=== PATIENT | male | born 1955 | race Caucasian/White ===

== ENCOUNTER 2024-02-04 11:17 | Observation (INO) | payer MEDICARE, SELFPAY ==
[2024-02-04 11:18] VITALS: BP 137/83; PULSE 78; RESP 18; TEMP 36.2; O2SAT 97
--- NOTE | 2024-02-04 11:27 | EKG12_ITS ---
Test Reason : N/V Blood Pressure : */* mmHG Vent. Rate : 73 BPM Atrial Rate : 73 BPM P-R Int : 140 ms QRS Dur : 74 ms QT Int : 390 ms P-R-T Axes : 17 -16 30 degrees QTcB Int : 429 ms Normal sinus rhythm Normal ECG Confirmed by Gio Weber ([id number]), metropolitan editor ROBINA COCHRAN ([id number]) on 02/07/2024 10:44:08 AM Referred By: Confirmed By: Gio Weber
--- NOTE | 2024-02-04 11:28 | EX.ED.DYSGE1 ---
HPI History of Present Illness Chief Complaint: Nausea/Vomiting/Diarrhea Narrative Narrative: 68-year-old male who denies significant past medical history presents via EMS status post syncopal episode. He relates history that he had a vasovagal episode in the early , over 20 years ago. Today, he had a syncopal episode for a few minutes according to his . He relates history that he has not been feeling well over the last few days to weeks with upper respiratory infection type symptoms. He has been making homemade cough syrup with honey and onion, and taking Zicam. He and his are driving to [place] today, and he did not feel well so he pulled over and his started driving. Shortly thereafter, he felt dizzy and lightheaded. His reports that he had a syncopal episode for a few moments. When he awoke, he had a large bowel movement/diarrhea. As she had pulled over, someone had called EMS because of a syncopal episode. He denies any prodromal symptoms such as chest pain or shortness of breath. He was given Zofran in the squad. He currently denies any abdominal pain or other symptoms. [facility] Medical History Vaso vagal episode Home Medications ?Medication ?Instructions ?Recorded ?Last Taken ?Type NK 02/04/24 Unknown History Allergy/AdvReac Type Severity Reaction Status Date / Time No Known Allergies Allergy Verified 02/04/24 11:25 Surgical History no surgical history Social History Smoking Status: Never smoker ROS ROS ED ROS Narrative Constitutional: No fever, no chills. HEENT: No sore throat. No neck pain. No loss of vision. No rhinorrhea. Cardiovascular: No chest pain. No palpitations. No pedal edema. Respiratory: Occasional cough and upper respiratory infection type symptoms times days to weeks. No shortness of breath. Abdominal: No abdominal pain. No nausea. No vomiting. Positive diarrhea. Genitourinary: No dysuria. No hematuria. Musculoskeletal: No myalgias. No arthralgias. Neurologic: No headaches. Positive dizziness and lightheadedness with syncopal episode for few minutes. Skin: No rash. No change in color. Psychiatric: No depression. No anxiety. EXAM Physical Exam Narrative Exam Narrative: Afebrile. Vital signs noted. HEENT examination grossly unremarkable, PERRL, EOMI. Neck soft and supple without meningismus. Cardiovascular examination reveals a regular rate and rhythm. Lungs are clear to auscultation bilaterally. Abdomen is soft, nontender, with positive bowel sounds. No guarding or rebound. Neurological examination shows him to be awake, alert, oriented x 3. At baseline. Const Vital Signs: 02/04/24 11:18 Temperature 97.1 F L Temperature Source Oral Pulse Rate 78 Respiratory Rate 18 Blood Pressure 137/83 H Blood Pressure Mean 101 Pulse Ox 97 Oxygen Delivery Method Room Air MDM MDM MDM Narrative Medical decision making narrative: Differential diagnosis includes but not limited to vasovagal syncope versus cardiac syncope versus seizure. Patient awoke, and had a large bowel movement/diarrhea. I do not think that this was secondary to seizure activity. There was no seizure-like activity reported by his . I do not feel he needs CT imaging of the brain. However, comprehensive workup was pursued. EKG was obtained and interpreted by myself independently as normal sinus rhythm at 73 bpm without ectopy or acute ST changes. No STEMI. QTc is normal at 449 ms. I reviewed his laboratory work and he has slight elevation of his WBC count at 13.1 which I think is nonspecific, hemoglobin 14.1 with hematocrit 40.9. Platelet count normal at 201. Chloride is slightly elevated at 108, normal sodium of 140 with potassium 3.8. BUN slightly elevated at 19 with a normal creatinine of 1.28. Glucose appropriately elevated at 140 with anion gap 9. I doubt hypoglycemia. LFTs are grossly unremarkable. Lipase normal at 29 so I doubt pancreatitis. Single high-sensitivity troponin is 3. Chest x-ray 1 view interpreted by myself independently as the patient has been coughing, shows no evidence of pneumonia or pneumothorax. I reviewed the radiology report which confirms my independent interpretation. Upon repeat examination, patient states he feels the same, but feels he is able to take in p.o. fluids. In retaking the history, he did state that he was having nausea and vomiting after his syncopal episode, and he felt the need to have a bowel movement. He states he attempted to exit the vehicle, and take off his pants, but was unable to do so. Hence, I doubt that he had a seizure with loss of bowel or bladder. Although he had a prior vasovagal episode, this was 20 years ago. Given the patient's age and an unknown reason for syncope that was witnessed by his , I discussed patient with the hospitalist for observation. Patient is in stable condition. History & Record Review Discussion w/independent historian: Patient and Family Lab Data Attestation: I reviewed the patient's lab results. Labs: Laboratory Results - last 24 hr 02/04/24 11:30 WBC 13.1 H RBC 4.62 Hgb 14.1 Hct 40.9 MCV 88.5 MCH 30.5 MCHC 34.5 RDW Std Deviation 43.7 RDW Coeff of Lorelei 13.4 Plt Count 201 MPV 9.4 Immature Gran % (Auto) 0.600 Neut % (Auto) 81.7 H Lymph % (Auto) 9.4 L [place]berg % (Auto) 7.3 Eos % (Auto) 0.8 Baso % (Auto) 0.2 Absolute Neuts (auto) 10.7 H Absolute Lymphs (auto) 1.23 Nucleated RBC % 0 Sodium 140 Potassium 3.8 Chloride 108 H Carbon Dioxide 23.0 Anion Gap 9 BUN 19 H Creatinine 1.28 Estim Creat Clear Calc 56.66 Est GFR (MDRD) Af Amer 71 Est GFR (MDRD) Non-Af 59 L BUN/Creatinine Ratio 14.8 Glucose 140 H Calcium 8.8 Total Bilirubin 0.70 AST 17 ALT 28 Alkaline Phosphatase 91 Troponin I High Sens 3 Total Protein 7.9 Albumin 4.3 Globulin 3.6 Albumin/Globulin Ratio 1.2 Lipase 29 Radiography Diagnostic Testing: Clinical Impression(s) from Imaging Studies Chest X-Ray 02/04/24 11:40 IMPRESSION: No focal infiltrate or edema. Electronically Signed: David Lao MD at 12:30 EST , Management Discussion w/another healthcare provider: Hospitalist (Dr. Segundo) Discharge Plan Dx/Rx/DC Orders Clinical Impression: Syncope, Nausea, vomiting and diarrhea, URI (upper respiratory infection) Disposition Disposition: [facility]
[2024-02-04 11:36] LABS: Absolute Lymphocyte Count 1.23 X10^3/uL (0.83-4.51); Absolute Neutrophil Count 10.7 X10^3/uL (2.0-7.7); Basophil# 0.03 X10^3/uL; Basophil% 0.2 % (0-1); Eosinophil# 0.11 X10^3/uL; Eosinophils% 0.8 % (0-5); Hematocrit 40.9 % (40-54); Hemoglobin 14.1 g/dL (13.0-16.5); Lymphocyte # 1.23 X10^3/ul (0.83-4.51); Lymphocyte % 9.4 % (19-41); Mean Corp Hgb Conc 34.5 g/dL (32-36); Mean Corpuscular Hgb 30.5 pg (27.0-32.0); Mean Corpuscular Volume 88.5 fL (80-94); Mean Platelet Vol. 9.4 fl (6.2-12.0); Monocyte# 0.96 X10^3/uL; Monocyte% 7.3 % (0-10); NRBC Flagged by Analyzer 0 % (0-5); Neutrophil # 10.68 X10^3/uL (2.7-7.7); Neutrophil % 81.7 % (47-70); Platelet Count 201 K/mm3 (150-450); RBC Distribution Width CV 13.4 % (11.6-14.6); RBC Distribution Width SD 43.7 fl (35.1-43.9); Red Blood Count 4.62 M/mm3 (4.6-6.2); White Blood Count 13.1 K/mm3 (4.4-11.0)
--- NOTE | 2024-02-04 11:40 | RAD_ITS ---
STUDY: X-RAY CHEST REASON FOR EXAM: Male, 68 years old. CAD TECHNIQUE: Single AP portable view of the chest. COMPARISON: None. FINDINGS: There are monitoring devices. The lungs are clear and expanded. There is calcification overlying the left lateral lower chest. There is no demonstrated pleural abnormality. Normal size heart. Normal mediastinum and shaina. Normal visualized pulmonary arteries. Normal visualized aortic arch and descending thoracic aorta. Normal visualized thoracic spine. Normal visualized ribs, clavicles, and shoulders. There is no demonstrated abnormality of the visualized soft tissue structures of the upper abdomen. RAD/Chest 1 View (Portable) IMPRESSION: No focal infiltrate or edema. Electronically Signed: David Lao MD at 12:30 [facility] ,
[2024-02-04 11:57] LABS: ALB/GLOB Ratio 1.2 RATIO (0.9-2.4); AST(SGOT) 17 U/L (15-37); Alanine Aminotransfer ALT/SGPT 28 U/L (16-61); Albumin, Serum 4.3 g/dL (3.2-5.0); Alkaline Phosphatase 91 U/L (45-117); Anion Gap 9 (5-15); BUN 19 mg/dL (7-18); BUN/Creat Ratio 14.8 RATIO (10-20); Calcium,Total 8.8 mg/dL (8.5-10.1); Chloride 108 mmol/L (98-107); Creatinine, Serum 1.28 mg/dL (0.70-1.30); EST Glomerular Filtration Rate 59 mL/min (>60); Est Glom Filt Rate - Afr Amer 71 mL/min (>60); Estimated Creatinine Clearance 56.66 ml/min; Globulin 3.6 g/dL (2.2-4.2); Glucose 140 mg/dL (74-106); Lipase 29 U/L (13-75); Potassium 3.8 mmol/L (3.5-5.1); Protein, Total 7.9 g/dL (6.4-8.2); Sodium Level 140 mmol/L (136-145); Troponin-I HS 3 pg/mL (3.0-78.0)
--- NOTE | 2024-02-04 12:50 | PCM.HP.STD ---
HPI - General General Date of Admission: 02/04/24 Date of Service: 02/04/24 Chief Complaint: Nausea, dry heaving, loose bowel movement and passed out HPI Narrative JAMIN ESCOBAR, is a 68 M was brought to ED by EMS after he passed out. As per his , he was driving and he did not feel right with dizziness, lightheadedness, nausea, dry heaving therefore he pulled over on the side and his took over driving and he sat on the backseat. After that he was nauseated, was sweating and saw that he passed out with eyes rolled back. She stopped the car and shook him and he woke up. EMS vitals were in normal range. Blood sugar was 124 mg/dL. He was given Zofran by EMS. He has history of vasovagal about 10 years ago when he was admitted in [facility]. Denies chronic cardiac disease including CAD, CHF or arrhythmia or valvular heart disease. No history of smoking or chronic lung disease. Patient also had one-time very loose to liquid bowel movement but no blood or mucus. He said he had COVID about 2 3 months ago and completed Paxlovid for that. Her last 2 to 3 weeks he is having URI symptoms including sniffles, postnasal drip, dry intermittent cough and today felt sore throat. Twelve-lead EKG is normal sinus rhythm, initially reviewed. Patient is further admitted. [facility] Medical History Vaso vagal episode Home Medications ?Medication ?Instructions ?Recorded ?Last Taken ?Type NK 02/04/24 Unknown History Allergy/AdvReac Type Severity Reaction Status Date / Time No Known Allergies Allergy Verified 02/04/24 11:25 Surgical History no surgical history Social History Smoking Status: Never smoker ROS ROS Narrative Constitutional: Reports acute onset of fatigue and weakness and no energy. No fever. HEENT: Reports systems reviewed and no addt'l complaints, except as documented Respiratory/Chest: No acute shortness of breath or respiratory distress or wheezing. Rest as described in HPI CVS: No chest pain pressure or tightness. Gastrointestinal: Driving and nausea but no vomiting. 1 large liquid bowel movement. Mild abdominal discomfort but no pain Genitourinary: Denies burning urination or new urinary tract symptoms Musculoskeletal: Denies acute joint pain or limited range of motion. No acute injury Neurologic: Denies seizure-like symptoms. skin: No ulcer. No rash Endocrinology: Reports systems reviewed and no addt'l complaints, except as documented Hematologic/Lymphatic: Reports systems reviewed and no addt'l complaints, except as documented Rest 14 ROS are negative except as mentioned in HPI Vital Signs Vital Signs Vital Signs: 02/04/24 11:18 Temperature 97.1 F L Temperature Source Oral Pulse Rate 78 Respiratory Rate 18 Blood Pressure 137/83 H Blood Pressure Mean 101 Pulse Ox 97 Oxygen Delivery Method Room Air Weight Weight: 164 lb 7.437 oz Body Mass Index (BMI) 0.1 Physical Exam Narrative General: Alert, Oriented x3, Cooperative HEENT: Atraumatic, PERRLA, EOMI, Normocephalic Oral: Oral mucosa dry. No Gingival or Mucosal Lesions/ Ulcerations Neck: Supple, No JVD, Negative Carotid Bruits Chest wall/Lungs: Air entry diminished in bilateral lung bases. No crepitation/rhonchi Cardiovascular: Regular rate, Regular Rhythm, Normal S1, Normal S2, No M/G/R Abdomen: Bowel Sounds hyperactive, Soft, Non Tender, Non-Distended : No dysuria. No renal angle tenderness. No suprapubic tenderness. Extremities: No edema, Capillary Refill Less than 3 Seconds Skin: No rashes, No breakdown Musculoskeletal: No Tenderness to Palpation of Joints or Extremities Neurological: Cranial nerves II-XII grossly intact, DTR 2+/4. No acute focal neurological deficit. Psych/Mental Status: flat affect Results Lab / Micro Data 02/04/24 11:30 02/04/24 11:30 Labs: Laboratory Results - last 24 hr 02/04/24 11:30: WBC 13.1 H, RBC 4.62, Hgb 14.1, Hct 40.9, MCV 88.5, MCH 30.5, MCHC 34.5, RDW Std Deviation 43.7, RDW Coeff of Lorelei 13.4, Plt Count 201, MPV 9.4, Immature Gran % (Auto) 0.600, Neut % (Auto) 81.7 H, Lymph % (Auto) 9.4 L, Mcdowell % (Auto) 7.3, Eos % (Auto) 0.8, Baso % (Auto) 0.2, Absolute Neuts (auto) 10.7 H, Absolute Lymphs (auto) 1.23, Nucleated RBC % 0, Sodium 140, Potassium 3.8, Chloride 108 H, Carbon Dioxide 23.0, Anion Gap 9, BUN 19 H, Creatinine 1.28, Estim Creat Clear Calc 56.66, Est GFR (MDRD) Af Amer 71, Est GFR (MDRD) Non-Af 59 L, BUN/Creatinine Ratio 14.8, Glucose 140 H, Calcium 8.8, Total Bilirubin 0.70, AST 17, ALT 28, Alkaline Phosphatase 91, Troponin I High Sens 3, Total Protein 7.9, Albumin 4.3, Globulin 3.6, Albumin/Globulin Ratio 1.2, Lipase 29 Imaging Radiology Impression Chest X-Ray 02/04/24 11:40 IMPRESSION: No focal infiltrate or edema. Electronically Signed: David Lao MD at 12:30 EST , Assessment & Plan Assessment/Plan (1) Syncope: PLAN: Plan This is 68-year-old gentleman being admitted for syncope after acute onset of nausea, 1 loose bowel movement and URI symptoms for 2 to 3 weeks. 1. Syncope most likely vasovagal response: Patient is being admitted in PCU on telemetry. Clinical history suggestive of vasovagal syncope and also has history of vasovagal in the past. Orthostatic blood pressure tomorrow AM. IV fluid resuscitation. First troponin negative. Twelve-lead EKG normal. 2D echo is ordered to complete the evaluation though he does not have prior cardiac disease. 2. Suspected viral gastroenteritis: Conservative management with IV fluid, supportive medications. Stool for enteric panel ordered. Patient did not had antibiotic recently and had only 1 bowel movement. 3. Subacute URI for 2 to 3 weeks: Triple screen for COVID, flu and RSV ordered. Strep throat also ordered. Chest x-ray initially reviewed and showed no focal infiltrate or pneumonia or edema. Mild leukocytosis, nonspecific. 4. DVT prophylaxis moderate risk: Lovenox 40 milligram subcu daily ordered. 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 His is next of kin. After discussion of benefits/risks procedures involved with full code, DNR CC arrest and DNR CC, the patient, his and daughter opted for full code. Patient does want artificial life support including intubation, tube feed, ventilator and/chest compression, central venous catheter, vasopressor and DC shock if needed Total time spent in [id number] encounter in discussion of advanced directive 17 minutes. Clinical Impression(s) from Imaging Studies Chest X-Ray 02/04/24 11:40 IMPRESSION: No focal infiltrate or edema. Laboratory Results 02/04/24 11:30: WBC 13.1 H, RBC 4.62, Hgb 14.1, Hct 40.9, MCV 88.5, MCH 30.5, MCHC 34.5, RDW Std Deviation 43.7, RDW Coeff of Lorelei 13.4, Plt Count 201, MPV 9.4, Immature Gran % (Auto) 0.600, Neut % (Auto) 81.7 H, Lymph % (Auto) 9.4 L, Mcdowell % (Auto) 7.3, Eos % (Auto) 0.8, Baso % (Auto) 0.2, Absolute Neuts (auto) 10.7 H, Absolute Lymphs (auto) 1.23, Nucleated RBC % 0, Sodium 140, Potassium 3.8, Chloride 108 H, Carbon Dioxide 23.0, Anion Gap 9, BUN 19 H, Creatinine 1.28, Estim Creat Clear Calc 56.66, Est GFR (MDRD) Af Amer 71, Est GFR (MDRD) Non-Af 59 L, BUN/Creatinine Ratio 14.8, Glucose 140 H, Calcium 8.8, Magnesium 1.8, Total Bilirubin 0.70, AST 17, ALT 28, Alkaline Phosphatase 91, Troponin I High Sens 3, Total Protein 7.9, Albumin 4.3, Globulin 3.6, Albumin/Globulin Ratio 1.2, Lipase 29 Charges/Coding Visit Charges Inpatient E&M: 84547 Init Hosp L3 Procedures Hospitalists Procedures: 72026 Advncd Care Plan 30 Min
[2024-02-04 13:05] LABS: Magnesium 1.8 mg/dL (1.6-2.6)
[2024-02-04 13:24] VITALS: BP 129/79; PULSE 69; RESP 18; TEMP 36.6; O2SAT 100
[2024-02-04 13:43] VITALS: BMI 27.3
[2024-02-04] MEDS: Lactated Ringers 1,000 ML 100 ML IV (14:02)
[2024-02-04 14:10] VITALS: BP 156/85; PULSE 66; RESP 17; TEMP 36.6; O2SAT 99
[2024-02-04 14:58] LABS: Troponin-I HS 4 pg/mL (3.0-78.0)
[2024-02-04] MEDS: Enoxaparin 40 MG/0.4 ML Syringe SC (17:33)
[2024-02-04 22:00] VITALS: BP 120/78; PULSE 62; RESP 16; TEMP 36.9; O2SAT 99
[2024-02-05] MEDS: Lactated Ringers 1,000 ML 100 ML IV (00:05)
[2024-02-05 04:55] VITALS: BP 121/65; BP 132/76; BP 137/74; PULSE 64; PULSE 69; PULSE 71; RESP 16; TEMP 36.7; O2SAT 95
[2024-02-05 05:15] VITALS: BMI 28.3
[2024-02-05 06:17] LABS: Absolute Lymphocyte Count 1.33 X10^3/uL (0.83-4.51); Absolute Neutrophil Count 7.3 X10^3/uL (2.0-7.7); Basophil# 0.01 X10^3/uL; Basophil% 0.1 % (0-1); Eosinophil# 0.15 X10^3/uL; Eosinophils% 1.6 % (0-5); Hematocrit 38.7 % (40-54); Lymphocyte # 1.33 X10^3/ul (0.83-4.51); Lymphocyte % 13.9 % (19-41); Mean Corp Hgb Conc 33.6 g/dL (32-36); Mean Corpuscular Hgb 30.4 pg (27.0-32.0); Mean Corpuscular Volume 90.4 fL (80-94); Mean Platelet Vol. 9.8 fl (6.2-12.0); Monocyte# 0.75 X10^3/uL; Monocyte% 7.8 % (0-10); NRBC Flagged by Analyzer 0 % (0-5); Neutrophil # 7.31 X10^3/uL (2.7-7.7); Neutrophil % 76.2 % (47-70); Platelet Count 187 K/mm3 (150-450); RBC Distribution Width CV 13.5 % (11.6-14.6); RBC Distribution Width SD 44.7 fl (35.1-43.9); Red Blood Count 4.28 M/mm3 (4.6-6.2); White Blood Count 9.6 K/mm3 (4.4-11.0)
[2024-02-05 07:23] LABS: Anion Gap 7 (5-15); BUN 14 mg/dL (7-18); BUN/Creat Ratio 14.2 RATIO (10-20); Calcium,Total 8.6 mg/dL (8.5-10.1); Chloride 107 mmol/L (98-107); Creatinine, Serum 0.98 mg/dL (0.70-1.30); EST Glomerular Filtration Rate 80 mL/min (>60); Est Glom Filt Rate - Afr Amer 97 mL/min (>60); Estimated Creatinine Clearance 64.92 ml/min; Glucose 95 mg/dL (74-106); Potassium 3.5 mmol/L (3.5-5.1); Sodium Level 139 mmol/L (136-145)
[2024-02-05 08:27] LABS: Bacteria 0 SEEN /hpf (None Seen); Mucous, Urine 0 SEEN /hpf (<or=2+); Red Blood Cells-Urine 0 SEEN /hpf (0-5); Squamous Epithelial Cells - UA 0 SEEN /hpf (0-5); White Blood Cells 0 SEEN /hpf (0-5)
--- NOTE | 2024-02-05 08:30 | PCM.DC ---
Discharge Instructions DC O2, CPAP, BIPAP needs Additional Home O2 Discharge instructions: No Follow Up Care Test Results: Test results from this visit will be discussed in further detail at your follow-up appointment, if applicable. Discharge Plan Admission Admit Date/Time: 02/04/24 12:45 Primary Reason for Your Visit: Vasovagal syncope. Possible allergic cough Attending Provider: Henry Segundo Primary Care Provider: ANTONIO SCHAFER Instructions Additional Instructions / Restrictions: Advised antiallergy Zyrtec 10 mg or Claritin 10 mg once daily for 7-day to see improvement of allergy Advised to follow with PCP on 02/06/2024 to evaluate. Referred to senior managing director will be helpful as he has cough for 3 weeks might be starting allergic cough and rotary drier feeder to evaluate for syncope, tilt table test may be helpful Discharge Orders/Prescriptions Prescriptions: New dextromethorphan-guaifenesin [Mucinex DM] 60-1,200 mg tablet extended release 12 hr 1 tab PO Q12H 7 Days Qty: 14 0RF Referrals / Follow Up: ANTONIO SCHAFER [Other] ANTONIO SCHAFER [Other] Disposition Disposition (needs filled in before D/C Order can be placed): Home, Self Care
--- NOTE | 2024-02-05 08:35 | DS.PCM_ITS ---
Providers Date of Admission: 02/04/24 Date of Discharge: 02/05/24 Primary Care Physician: ANTONIO SCHAFER Reason For Visit: SYNCOPE URI FOR 1 WEEK Diagnosis Discharge Diagnosis (1) Syncope: Status: Acute Code(s): R55 - Syncope and collapse Plan This is 68-year-old gentleman being admitted for syncope after acute onset of nausea, 1 loose bowel movement and URI symptoms, predominantly dry cough from throat for 3 weeks 1. Syncope most likely vasovagal response: Patient is being admitted in PCU on telemetry. Clinical history suggestive of vasovagal syncope and also has history of vasovagal in the past. Orthostatic blood pressure tomorrow AM. IV fluid resuscitation. First troponin negative. Twelve-lead EKG normal. 02/04: child monitor reviewed. Sinus rhythm, heart rate in 60s with occasional PVC. K3.5. Potassium supplement ordered. 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 Outpatient 2D echo advised. Patient wants to go home therefore discharged 2. Suspected viral gastroenteritis: Conservative management with IV fluid, supportive medications. Stool for enteric panel ordered. Patient did not had antibiotic recently and had only 1 bowel movement. 02/04: Patient is well-hydrated. Urine output good with clear color. 3. Subacute URI for 2 to 3 weeks: Triple screen for COVID, flu and RSV ordered. Strep throat also ordered. Chest x-ray initially reviewed and showed no focal infiltrate or pneumonia or edema. Mild leukocytosis, nonspecific. 02/04: On exam, lungs are clear with no crepitation wheezing. Cough mainly from throat since allergy going for 3 weeks. Advised referral to rn hyperbaric to evaluate. Mucinex DM prescribed for 1 week. Advised [id number] Zyrtec 10 mg or loratadine 10 mg for 1 week to gauze the response whether it is allergic cough. 4. DVT prophylaxis moderate risk: Lovenox 40 milligram subcu daily ordered. Living will/advanced directive/end of life care: Patient does not have living will or advanced directive or designated power of employment attorney for health. His is next of kin. After discussion of benefits/risks procedures involved with full code, DNR CC arrest and DNR CC, the patient, his and daughter opted for full code. Patient does want artificial life support including intubation, tube feed, ventilator and/chest compression, central venous catheter, vasopressor and DC shock if needed Discharge medication reconciliation done. Discharge follow-up instructions completed. Discharge process discussed with the patient and all questions were answered to patient's satisfaction. Follow with PCP in 1 to 2 weeks Total time spent, exact 35 minutes on discharge meds reconciliation, examination, coordination of care with nurses and ancillary staff, review of imaging and blood test and discussion with the patient on follow-up instructions. Clinical Impression(s) from Imaging Studies Chest X-Ray 02/04/24 11:40 IMPRESSION: No focal infiltrate or edema. Microbiology Past 72 Hours 02/04/24 12:54 Mucosa - Nose SARS-CoV-2, Influenza & RSV (PCR) - Final Laboratory Results 02/04/24 08:15: Urine Color Straw, Urine Clarity Clear, Urine pH 7.0, Ur Specific [place] 1.005, Urine Protein Negative, Urine Glucose (UA) Normal, Urine Ketones Negative, Urine Occult Blood Negative, Urine Nitrite Negative, Urine Bilirubin Negative, Urine Urobilinogen Normal, Ur Leukocyte Esterase Negative, Urine RBC Pending, Urine WBC Pending, Ur Squamous Epith Cells Pending, Urine Bacteria Pending, Urine Mucus Pending 02/04/24 11:30: WBC 13.1 H, RBC 4.62, Hgb 14.1, Hct 40.9, MCV 88.5, MCH 30.5, MCHC 34.5, RDW Std Deviation 43.7, RDW Coeff of [place] 13.4, Plt Count 201, MPV 9.4, Immature Gran % (Auto) 0.600, Neut % (Auto) 81.7 H, Lymph % (Auto) 9.4 L, [place] % (Auto) 7.3, Eos % (Auto) 0.8, Baso % (Auto) 0.2, Absolute Neuts (auto) 10.7 H, Absolute Lymphs (auto) 1.23, Nucleated RBC % 0, Sodium 140, Potassium 3.8, Chloride 108 H, Carbon Dioxide 23.0, Anion Gap 9, BUN 19 H, Creatinine 1.28, Estim Creat Clear Calc 56.66, Est GFR (MDRD) Af Amer 71, Est GFR (MDRD) Non-Af 59 L, BUN/Creatinine Ratio 14.8, Glucose 140 H, Calcium 8.8, Magnesium 1.8, Total Bilirubin 0.70, AST 17, ALT 28, Alkaline Phosphatase 91, Troponin I High Sens 3, Total Protein 7.9, Albumin 4.3, Globulin 3.6, Albumin/Globulin Ratio 1.2, Lipase 29 02/04/24 14:19: Troponin I High Sens 4 02/05/24 04:42: WBC 9.6, RBC 4.28 L, Hgb 13.0, Hct 38.7 L, MCV 90.4, MCH 30.4, MCHC 33.6, RDW Std Deviation 44.7 H, RDW Coeff of [place] 13.5, Plt Count 187, MPV 9.8, Immature Gran % (Auto) 0.400, Neut % (Auto) 76.2 H, Lymph % (Auto) 13.9 L, [place] % (Auto) 7.8, Eos % (Auto) 1.6, Baso % (Auto) 0.1, Absolute Neuts (auto) 7.3, Absolute Lymphs (auto) 1.33, Nucleated RBC % 0, Sodium 139, Potassium 3.5, Chloride 107, Carbon Dioxide 25.0, Anion Gap 7, BUN 14, Creatinine 0.98, Estim Creat Clear Calc 64.92, Est GFR (MDRD) Af Amer 97, Est GFR (MDRD) Non-Af 80, BUN/Creatinine Ratio 14.2, Glucose 95, Calcium 8.6, TSH 1.990 Medications at Discharge Home Medications dextromethorphan-guaifenesin ER 60 mg-1,200 mg tab,extend release,12hr (Mucinex DM) 1 tab PO Q12H 7 days #14 tabs 02/05/24 Physical Exam Narrative Seen and examined. Discussed with the patient and his family members including and daughters. Patient has chronic cough but otherwise nausea vomiting and diarrhea resolved. Patient is well-hydrated. Wants to go home. No fever Physical exam General: Alert, Oriented x3, Cooperative HEENT: Atraumatic, PERRLA, EOMI, Normocephalic Oral: Oral mucosa dry. No Gingival or Mucosal Lesions/ Ulcerations Neck: Supple, No JVD, Negative Carotid Bruits Chest wall/Lungs: Air entry equal in bilateral lung bases. No crepitation/rhonchi Cardiovascular: Regular rate, Regular Rhythm, Normal S1, Normal S2, No M/G/R Abdomen: Bowel Sounds hyperactive, Soft, Non Tender, Non-Distended : No dysuria. No renal angle tenderness. No suprapubic tenderness. Extremities: No edema, Capillary Refill Less than 3 Seconds Skin: No rashes, No breakdown Musculoskeletal: No Tenderness to Palpation of Joints or Extremities Neurological: Cranial nerves II-XII grossly intact, DTR 2+/4. No acute focal neurological deficit. Psych/Mental Status: Normal affect Weight / BMI Weight Weight: 164 lb 14.492 oz Body Mass Index (BMI) 28.3 ABG / Lab / Microbiology Data 02/05/24 04:42 02/05/24 04:42 Laboratory: Laboratory Results - last 24 hr 02/04/24 11:30: WBC 13.1 H, RBC 4.62, Hgb 14.1, Hct 40.9, MCV 88.5, MCH 30.5, MCHC 34.5, RDW Std Deviation 43.7, RDW Coeff of [place] 13.4, Plt Count 201, MPV 9.4, Immature Gran % (Auto) 0.600, Neut % (Auto) 81.7 H, Lymph % (Auto) 9.4 L, [place] % (Auto) 7.3, Eos % (Auto) 0.8, Baso % (Auto) 0.2, Absolute Neuts (auto) 10.7 H, Absolute Lymphs (auto) 1.23, Nucleated RBC % 0, Sodium 140, Potassium 3.8, Chloride 108 H, Carbon Dioxide 23.0, Anion Gap 9, BUN 19 H, Creatinine 1.28, Estim Creat Clear Calc 56.66, Est GFR (MDRD) Af Amer 71, Est GFR (MDRD) Non-Af 59 L, BUN/Creatinine Ratio 14.8, Glucose 140 H, Calcium 8.8, Magnesium 1.8, Total Bilirubin 0.70, AST 17, ALT 28, Alkaline Phosphatase 91, Troponin I High Sens 3, Total Protein 7.9, Albumin 4.3, Globulin 3.6, Albumin/Globulin Ratio 1.2, Lipase 29 02/04/24 14:19: Troponin I High Sens 4 02/05/24 04:42: WBC 9.6, RBC 4.28 L, Hgb 13.0, Hct 38.7 L, MCV 90.4, MCH 30.4, MCHC 33.6, RDW Std Deviation 44.7 H, RDW Coeff of [place]lei 13.5, Plt Count 187, MPV 9.8, Immature Gran % (Auto) 0.400, Neut % (Auto) 76.2 H, Lymph % (Auto) 13.9 L, [place] % (Auto) 7.8, Eos % (Auto) 1.6, Baso % (Auto) 0.1, Absolute Neuts (auto) 7.3, Absolute Lymphs (auto) 1.33, Nucleated RBC % 0, Sodium 139, Potassium 3.5, Chloride 107, Carbon Dioxide 25.0, Anion Gap 7, BUN 14, Creatinine 0.98, Estim Creat Clear Calc 64.92, Est GFR (MDRD) Af Amer 97, Est GFR (MDRD) Non-Af 80, BUN/Creatinine Ratio 14.2, Glucose 95, Calcium 8.6, TSH 1.990 Microbiology: Microbiology 02/04/24 12:54 Mucosa - Nose SARS-CoV-2, Influenza & RSV (PCR) - Final Radiography Diagnostic Testing: Radiology Impression Chest X-Ray 02/04/24 11:40 IMPRESSION: No focal infiltrate or edema. Electronically Signed: David Lao MD at 12:30 EST , D/C Instructions DC O2, CPAP, BIPAP Needs Additional Home O2 Discharge instructions: No DC home with Oxygen: No Meaningful Use Info Meaningful Use Meaningful Use Diagnoses (Choose all that apply): None applicable Ischemic Stroke Statin Dosing Therapy Reference: STATIN DOSE THERAPY REFERENCE: * Patients > 75 years receive moderate or high dose statin therapy. * Patients 75 years or YOUNGER should receive HIGH intensity statin dose unless contraindicated. You will be required to document reason for non-treatment if statin daily dose does not meet guidelines. HIGH DOSE STATIN THERAPY DAILY Atorvastatin > than or = to 40 mg Rosuvastatin > than or = to 20 mg Amlodipine + Atorvastatin > than or = to 2.5/40 mg Ezetimibe + Simvastatin 10/80 mg Simvastatin 80mg Discharge Plan Admission Admit Date/Time: 02/04/24 12:45 Primary Reason for Your Visit: Vasovagal syncope. Possible allergic cough Attending Provider: Henry Segundo Primary Care Provider: ANTONIO SCHAFER Instructions Additional Instructions / Restrictions: Advised antiallergy Zyrtec 10 mg or Claritin 10 mg once daily for 7-day to see improvement of allergy Advised to follow with PCP on 02/06/2024 to evaluate. Referred to rn hyperbaric will be helpful as he has cough for 3 weeks might be starting allergic cough and skoog patching machine operator to evaluate for syncope, tilt table test may be helpful Discharge Orders/Prescriptions Prescriptions: New dextromethorphan-guaifenesin [Mucinex DM] 60-1,200 mg tablet extended release 12 hr 1 tab PO Q12H 7 Days Qty: 14 0RF Referrals / Follow Up: ANTONIO SCHAFER [Other] ANTONIO SCHAFER [Other] Disposition Disposition (needs filled in before D/C Order can be placed): Home, Self Care Charges/Coding Visit Charges Inpatient E&M: 82414 Disch Hosp >30min
[2024-02-05 08:36] LABS: Color, Urine Straw (Yellow); Glucose, Dipstick Normal (Normal); Ketone-Dipstick Negative (Negative); Leukocyte Esterase-Dipstick Negative /ul (Negative); Nitrite-Dipstick Negative (Negative); Occult Blood-Urine Negative /ul (Negative); Protein-Dipstick Negative (Negative); Specific Gravity, Urine 1.005 (1.002-1.030); Urine Bilirubin Dipstick Negative (Negative); Urine Clarity Clear (Clear); Urine Urobilinogen Normal (Normal)
[2024-02-05] MEDS: Potassium Chloride Oral Tablet 20 MEQ 40 MEQ PO (09:34)
== END 2024-02-05 08:34 | disposition home or self-care (01) ==
LOC: ED 12:49 → PCU 12:59
PROVIDERS: Admitting Provider Internal Medicine; Emergency Provider Emergency Medicine; Visit Provider Internal Medicine
DX: R55 Syncope and collapse (principal); R11.2 Nausea with vomiting, unspecified; J06.9 Acute upper respiratory infection, unspecified; R19.7 Diarrhea, unspecified; Z86.16 Personal history of COVID-19
CPT/HCPCS: 36415; 71045; 80048; 80053; 81001; 83690; 83735; 84443; 84484; 85025; 87631; 93005; 94668; 96360; 96361; 96372; 99221; 99285; J7120; G0378